=== PATIENT | male | born 1990 | race Caucasian/White ===

== ENCOUNTER 2016-08-01 09:06 | Emergency (ER) | payer OTHER ==
[~2016-08-01] VITALS: Ht 157.5 cm; Wt 67.4 kg
[2016-08-01] MEDS ORDERED: KEFLEX500 MG PO (11:05)
[2016-08-01 11:20] VITALS: BP 120/73
== END 2016-08-01 11:21 | disposition home or self-care (01) ==
LOC: EME 09:06
DX: S00.431A Contusion of right ear, initial encounter (principal)
CPT/HCPCS: 99281; 99283

== ENCOUNTER 2017-02-20 21:55 | Emergency (ER) | payer OTHER ==
[~2017-02-20] VITALS: Ht 167.6 cm; Wt 64.5 kg
[~2017-02-20 21:55] MED LIST: KEFLEX500 MG PO
[2017-02-20 22:03] VITALS: BP 141/80
== END 2017-02-21 00:20 | disposition home or self-care (01) ==
LOC: EME 21:55
PROC: 3E0234Z Introduction of Serum, Toxoid and Vaccine into Muscle, Percutaneous Approach (ICD-10-PCS; principal; 2017-02-20)
DX: S20.229A Contusion of unspecified back wall of thorax, initial encounter (principal); S20.419A Abrasion of unspecified back wall of thorax, initial encounter; Y00.XXXA Assault by blunt object, initial encounter; M95.12 Cauliflower ear, left ear; M95.11 Cauliflower ear, right ear; Z23 Encounter for immunization
CPT/HCPCS: 99281; 99284